=== PATIENT | female | born 1955 | race Caucasian/White ===

== ENCOUNTER 2024-06-30 09:57 | Emergency (ER) | payer MEDICARE, BC ==
[2024-06-30] MEDS ORDERED: Acetaminophen 500 MG TAB ONE (10:28)
[2024-06-30 10:36] LABS: Bilirubin Small (Negative); Blood, Urine Moderate (Negative); Clarity Hazy (Clear); Glucose, Urine (Dipstick) 250 mg/dL (Negative); Ketone, Urine 15 mg/dL (Negative); Leukocyte Small (Negative); Nitrite Positive (Negative); Protein, Urine (Dipstick) > or equal to 300 mg/dL (Neg-Trace); Specific Gravity, Urine 1.025 (1.005-1.030); Urobilinogen 0.2 mg/dL (Less than 2); pH, Urine 5.5 (5.0-9.0)
[2024-06-30 10:39] LABS: CAUTI Indications for Culture Dysuria,urgency,freq; Squamous Epithelial 0-3 HPF (0-3); WBC/HPF Greater Than 50 HPF (0-3)
[2024-06-30 10:40] LABS: Bacteria/HPF 2+ HPF (None Seen)
[2024-06-30 10:41] LABS: Urine Culture Reflex Yes Yes
[2024-06-30 12:10] LABS: Hematocrit 41.2 % (36.0-47.0); Hemoglobin 12.8 g/dL (12.0-16.0); Mean Corpuscular HGB CONC 31.2 g/dL (32.0-36.0); Mean Corpuscular Hemoglobin 26.9 pg (27.0-31.0); Mean Corpuscular Volume 86.2 fl (78.0-98.0); Mean Platelet Volume 8.8 fL (7.4-10.4); Platelet Count 157 10x3/uL (130-400); RBC Distribution Width 17.2 % (11.5-14.5); Red Blood Cell (RBC) Count 4.78 mill/uL (4.20-5.40)
[2024-06-30 12:13] LABS: Anion Gap 14 mmol/L (10-20); BUN (Urea Nitrogen) 12 mg/dL (9.8-20.1); Calc. Creatinine Clearance 0 mL/min (70-130); Calcium 9.3 mg/dL (7.8-10.44); Carbon Dioxide 31 mmol/L (23-31); Chloride 94 mmol/L (98-107); Estimated GFR 59; Glucose 213 mg/dL (80-115); Potassium 3.3 mmol/L (3.5-5.1); Sodium 136 mmol/L (136-145)
[2024-06-30 12:14] LABS: Lymphocytes 9 % (21-51); MDiff Complete? YES; Manual Diff?? YES; Monocytes 9 % (0-10); Neutrophil 73 % (42-75)
[2024-06-30 12:15] LABS: Anisocytosis SLIGHT = 6-15 cells (100X) (0-5/hpf); Band 7 % (5-11); Eosinophils 2 % (0-10); Platelet Adequacy Comment Appears Adequate
[2024-06-30] MEDS ORDERED: Potassium Chloride 20 MEQ TAB ONE (12:35)
[2024-06-30] MEDS ORDERED: LevoFLOXacin D5W 500 mg (100 mL) BAG ONE (12:35)
[2024-06-30] MEDS ORDERED: Sodium Chloride 0.9% 1,000 ML ONE ×3 (14:01→18:23)
[2024-06-30] MEDS ORDERED: Ibuprofen 800 MG TAB ONE (15:34)
[2024-06-30] MEDS ORDERED: Albuterol 2.5 MG (3 mL) NEB ONE (15:55)
[2024-06-30] MEDS ORDERED: cefTRIAXone (ROCEPHIN) 2 GM VIAL ONE (18:23)
[2024-06-30] MEDS ORDERED: Sodium Chloride 0.9% 100 ML ONE (18:23)
== END 2024-06-30 19:12 | disposition short-term general hospital (02) ==
LOC: MADERS 09:57
DX: A41.9 Sepsis, unspecified organism (principal); R65.21 Severe sepsis with septic shock; N39.0 Urinary tract infection, site not specified; E11.9 Type 2 diabetes mellitus without complications; I10 Essential (primary) hypertension; E03.9 Hypothyroidism, unspecified; Z79.890 Hormone replacement therapy; Z79.84 Long term (current) use of oral hypoglycemic drugs
CPT/HCPCS: 36415; 71045; 80048; 81001; 83605; 85025; 87040; 87077; 87086; 87149; 87428; 96365; 96367; J0696; J1956; J7030; J7611